=== PATIENT | male | born 1990 | race Caucasian/White ===

== ENCOUNTER 2025-09-22 12:59 | Emergency (ER) | payer MEDICARE, SELFPAY ==
[2025-09-22 13:07] VITALS: BP 144/95
[2025-09-22 13:27] LABS: Hematocrit 39.4 % (39.0-52.0); Hemoglobin 12.9 g/dL (13.0-18.0); Mean Corp Hgb Conc. 32.7 g/dL (33.0-37.0); Mean Corpuscular Volume 87.0 fL (80.0-94.0); Nucleated Red Blood Cells % 0 % (-); Platelet Count 366 10^3/uL (130-400); Red Cell Dist. Width 14.0 % (11.5-14.5)
[2025-09-22 13:45] LABS: ALT (SGPT) 21 U/L (0-50); AST (SGOT) 23 U/L (17-59); Albumin 4.3 g/dl (3.5-5.0); Alkaline Phosphatase 86 U/L (38-126); Blood Urea Nitrogen 13 mg/dl (9-20); Calcium 9.4 mg/dl (8.4-10.2); Carbon Dioxide 33 mmol/L (22-30); Chloride 102 mmol/L (98-107); Glucose 109 mg/dl (70-99); Potassium 4.0 mmol/L (3.5-5.1); Sodium 138 mmol/L (135-145); Total Protein 7.1 g/dl (6.3-8.2); eGFR > 60.00
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
== END 2025-09-22 16:04 | disposition home or self-care (01) ==
LOC: EMR 12:59
PROVIDERS: Student in an Organized Health Care Education/Training Program; EMERGENCY PHYSICIAN Emergency Medicine
DX: R20.2 Paresthesia of skin (principal); J45.909 Unspecified asthma, uncomplicated; K50.90 Crohn's disease, unspecified, without complications; Z86.19 Personal history of other infectious and parasitic diseases
CPT/HCPCS: 99283; 80053; 85025